=== PATIENT | male | born 1950 | race Caucasian/White ===

== ENCOUNTER → 2018-03-01 | Outpatient (CLI) | payer OTHER ==
--- NOTE | 2018-03-01 12:32 | DIAGNOSTIC IMAGING REPORT ---
CHEST 2 VIEWS ROUTINE CLINICAL HISTORY: Z77.098 Exposure to industrial [id number] Congestion of respirat dyspnea COMPARISON STUDY: No previous studies for comparison. FINDINGS: The bones soft tissues and hemidiaphragms are normal. The cardiomediastinal silhouette is normal. The lungs are clear. The pulmonary vasculature is normal. Mild emphysematous change IMPRESSION: Negative chest. Mild emphysematous change. The above report was generated using voice recognition software. It may contain grammatical, syntax or spelling errors. Electronically signed by: Pineda Santillan M.D. 03/01/2018 12:31 PM Dictated Date/Time: 03/01/2018 12:30 PM
[2018-03-01 14:05] LABS: ALBUMIN 4.1 gm/dl (3.4-5.0); ALT/SGPT 15 U/L (12-78); AST/SGOT 10 U/L (15-37); BLOOD UREA NITROGEN 7 mg/dl (7-18); CALCIUM 8.9 mg/dl (8.5-10.1); CARBON DIOXIDE 25 mmol/L (21-32); CHOLESTEROL 182 mg/dl (0-200); CREATININE 0.73 mg/dl (0.60-1.40); GLUCOSE 101 mg/dl (70-99); SODIUM 134 mmol/L (136-145)
[2018-03-01 14:10] LABS: ALKALINE PHOSPHATASE 43 U/L (45-117); LDL CHOLESTEROL CALCULATED 104 mg/dl; TOTAL PROTEIN 8.2 gm/dl (6.4-8.2)
== END | disposition home or self-care (01) ==
LOC: C.LABBC 09:56
PROVIDERS: ATTEND Neuromusculoskeletal Medicine & OMM
DX: Z12.5 Encounter for screening for malignant neoplasm of prostate (principal); Z13.1 Encounter for screening for diabetes mellitus; Z13.220 Encounter for screening for lipoid disorders; Z23 Encounter for immunization; Z77.098 Contact with and (suspected) exposure to other hazardous, chiefly nonmedicinal, chemicals; J98.8 Other specified respiratory disorders; R76.8 Other specified abnormal immunological findings in serum